=== PATIENT | male | born 1995 | race Two or more races ===

== ENCOUNTER 2022-12-03 14:03 | Emergency (ER) | payer SELFPAY ==
[2022-12-03 14:04] VITALS: BP 134/79; PULSE 81; RESP 16; TEMP 36.8; O2SAT 99; BMI 22.3
--- NOTE | 2022-12-03 14:13 | PC.NURSE ---
automatic bow maker machine tender used with Dr. Morales at bedside. Assessments and questions answered. Patient has no concerns or questions at this time. He is currently handcuffed, sitting in bedside chair with officer at bedside. NAD
[2022-12-03 14:23] VITALS: BP 128/71; PULSE 74; RESP 16; TEMP 36.8; O2SAT 99
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
== END 2022-12-03 14:42 | disposition home or self-care (01) ==
PROVIDERS: Emergency Provider Student in an Organized Health Care Education/Training Program
DX: Z04.1 Encounter for examination and observation following transport accident (principal); V49.9XXA Car occupant (driver) (passenger) injured in unspecified traffic accident, initial encounter
CPT/HCPCS: 99281; 99282